=== PATIENT | male | born 2000 | race Hispanic/Latino ===

== ENCOUNTER 2018-03-26 01:49 | Emergency (ER) | payer OTHER ==
[2018-03-26 02:06] VITALS: RESP 18
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
[2018-03-26 05:25] VITALS: BP 122/84; PULSE 94; TEMP 98.9
[2018-03-26 05:26] VITALS: O2SAT 99
== END 2018-03-26 03:00 | disposition home or self-care (01) ==
LOC: H.ER 01:49
DX: S01.81XA Laceration without foreign body of other part of head, initial encounter (principal); W19.XXXA Unspecified fall, initial encounter; Y92.89 Other specified places as the place of occurrence of the external cause